=== PATIENT | female | born 2005 | race Caucasian/White ===

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

== ENCOUNTER → 2023-08-31 | Outpatient (REF) | payer OTHER | LOC: M SFHCCLAY 15:37 | PROVIDERS: ATTEND Physician Assistant | DX: B34.9 Viral infection, unspecified (principal); J02.9 Acute pharyngitis, unspecified ==

== ENCOUNTER → 2023-09-01 | Outpatient (REF) | payer OTHER | LOC: M SFHCCLAY 08:49 | PROVIDERS: ATTEND Physician Assistant | DX: J02.9 Acute pharyngitis, unspecified (principal) ==

== ENCOUNTER → 2024-05-31 | Outpatient (REF) | payer OTHER ==
[2024-05-31 21:58] LABS: Trichomonas vaginalis (AMP) NOT DETECTED (NEGATIVE)
[2024-05-31 22:22] LABS: GC DNA AMPLIFICATION NEGATIVE (NEGATIVE)
== END ==
LOC: M SFHCCLAY 11:03
PROVIDERS: ATTEND Nurse Practitioner Family
DX: Z01.419 Encounter for gynecological examination (general) (routine) without abnormal findings (principal)